=== PATIENT | male | born 1970 | race American Indian/Alaskan Native ===

== ENCOUNTER 2017-03-19 14:46 | Emergency (ER) | payer OTHER ==
[~2017-03-19] VITALS: Ht 172.7 cm; Wt 70.1 kg
[2017-03-19 15:00] VITALS: BP 151/93; PULSE 63; RESP 16; TEMP 98.6; O2SAT 98
[2017-03-19] MEDS ORDERED: ATEN25TA PO (15:27)
[2017-03-19] MEDS ORDERED: LOTR1CRE TOPICAL (15:33)
[2017-03-19] MEDS ORDERED: MUPI2%T TOPICAL (15:34)
--- NOTE | 2017-03-19 15:45 | PD ---
HPI Chief Complaint: Skin Problem Time Seen by Provider: 15:34 Travel History International Travel<30 days: No Contact w/Intl Traveler<30days: No Traveled to known affect area: No History of Present Illness HPI 46-year-old male presents to the emergency room for evaluation of an insect bite to his left lateral ankle that started about one week ago. Patient states it is extremely itchy. He has been scratching it. Reports history of pus and drainage but states it seems to have improved. States he woke up this morning and had ulcerations and itchiness between his first and second toes so he came to the emergency room concerned that the infection was spreading. He has been applying triple antibiotic ointment to the areas with moderate relief in symptoms. Patient denies fever, chills, nausea, and vomiting. Only history of hypertension. PFSH Past Medical History Cardiovascular Problems: Yes (htn on meds) Hypertension: Yes Tetanus Vaccination: > 5 Years Past Surgical History Surgical History: No Previous Surgery Social History Alcohol Use: Yes (3 beers/daily) Tobacco Use: Yes (1 ppd) Allergies-Medications Reported Meds & Prescriptions Reported Meds & Active Scripts Active Bactroban Topical (Mupirocin) 22 Gm Cream 1 Applic TOPICAL BID Lotrimin AF Topical (Clotrimazole) 1% Cream 1 Applic TOPICAL BID Reported Atenolol 25 Mg Tab 25 Mg PO DAILY Review of Systems Except as stated in HPI: all other systems reviewed are Neg Physical Exam Narrative GENERAL: Well-nourished, well-developed male in no acute distress. Afebrile. Ambulatory. SKIN: Focused skin assessment warm/dry. There is a 4 cm superficial laceration to the left lateral malleolus with mild surrounding erythema. The ulceration has yellow eschar tissue. No crusting or purulent drainage. No increased warmth or lymphangitis. Patient also has superficial ulcerations between his first and second toe with mild clear drainage and macerated skin. HEAD: Normocephalic. EYES: No scleral icterus. No injection or drainage. NECK: Supple, trachea midline. No JVD or lymphadenopathy. CARDIOVASCULAR: Regular rate and rhythm without murmurs, gallops, or rubs. RESPIRATORY: Breath sounds equal bilaterally. No accessory muscle use. PSYCHIATRIC: No delusional thought processes. No hallucinations. Data Data Last Documented VS Vital Signs Date Time Temp Pulse Resp B/P Pulse Ox O2 Delivery O2 Flow Rate FiO2 03/19/17 15:00 98.6 63 16 151/93 98 MDM Medical Decision Making Medical Screen Exam Complete: Yes Emergency Medical Condition: Yes Medical Record Reviewed: Yes Differential Diagnosis Impetigo, athlete's foot, cyanosis, folliculitis Narrative Course 46-year-old male presents to the emergency room for evaluation of multiple patients the left lower extremity. States he first noticed a bug bite on his lateral malleolus 6 days ago. No evidence of cellulitis. No systemic signs of infection. Patient's treatment first and second toe started a few days ago. Physical exam reveals a slightly impetiginous lesion to the left lateral malleolus. There is obvious tinea pedis in the interdigital webspaces of the left foot. Patient treated with topical solutions for both. Told to follow-up with a primary care physician or return for worsening symptoms. He understands and agrees to plan. Diagnosis Primary Impression: Tinea pedis Qualified Code: B35.3 - Tinea pedis of left foot Additional Impression: Impetigo Referrals: Primary Care Physician Patient Instructions: General Instructions, Impetigo (ED), Tinea Pedis (ED) Additional Instructions: Rest and drink plenty of fluids. Apply Bactroban to the ankle lesion until healed. Apply clotrimazole 2 feet twice daily for up to 4 weeks until lesions are healed. Keep feet clean and dry. Apply ice to the affected area for 20 minutes at a time, as needed for pain and swelling. Follow-up with a primary care physician. Return to the emergency room for worsening symptoms. Med/Other Pt SpecificInfo: Prescription(s) given Scripts Mupirocin Topical (Bactroban Topical)22 Gm Cream1 Applic TOPICAL BID #1 TUBE Ref 0 Prov:Brijesh Santo MD 03/19/17 Clotrimazole Topical (Lotrimin AF Topical)1% Cream1 Applic TOPICAL BID #1 TUBE Ref 0 Prov:Brijesh Santo MD 03/19/17 Disposition: 01 DISCHARGE HOME Condition: Stable Marta Melton Mar 19, 2017 15:45
== END 2017-03-19 15:56 | disposition home or self-care (01) ==
LOC: PHED 14:46 → PHEFT 15:56
DX: B35.3 Tinea pedis (principal); L01.00 Impetigo, unspecified; I10 Essential (primary) hypertension; F17.200 Nicotine dependence, unspecified, uncomplicated
CPT/HCPCS: 99283